=== PATIENT | male | born 1950 | race Caucasian/White ===

== ENCOUNTER 2016-09-07 15:24 | Inpatient (IN) ==
[2016-09-07 19:03] LABS: Red Cell Distribution Width 19.5 % (11.5-14.5)
[2016-09-07 19:04] LABS: Hematocrit 24.4 % (37.5-50.1); Immature Granulocytes % 1.5 % (0-4); Immature Platelets 2.5 % (1.1-6.1); Lymphocytes # 0.7 K/mcL (0.6-4.6); Lymphocytes % 28.6 %; Mean Corpuscular HGB Conc 30.7 g/dL (31.6-35.5); Mean Corpuscular Hemoglobin 34.1 pg (28.0-33.3); Mean Corpuscular Volume 110.9 fL (83.0-100.0); Mean Platelet Volume 9.3 fL (9.4-12.4); Monocytes # 0.2 K/mcL (0.0-1.3); Monocytes % 7.7 %; Neutrophils # 1.6 K/mcL (1.6-8.9); Nucleated Red Blood Cells 0.8 /100 WBC (0); Platelet Count 104 K/mcL (140-400); Segmented Neutrophils % 62.2 %
[2016-09-07 19:19] LABS: Alanine Aminotransferase 13 Units/L (0-55); Albumin 2.9 g/dL (3.5-5.0); Albumin/Globulin Ratio 1.1 (1.1-2.2); Alkaline Phosphatase 64 Units/L (38-126); Aspartate Amino Transferase 23 Units/L (5-34); BUN/Creatinine Ratio 17 (6-26); Bilirubin,Total 0.5 mg/dL (0.2-1.2); Blood Urea Nitrogen 14 mg/dL (8-26); Calcium 8.6 mg/dL (8.6-10.8); Carbon Dioxide 25 mEq/L (19-29); Chloride 107 mEq/L (98-109); Globulin 2.6 g/dL (2.4-3.5); Glucose 115 mg/dL (70-99); Osmolality,Calculated 293 (280-300); Potassium 4.3 mEq/L (3.5-4.5); Sodium 141 mEq/L (136-145); Total Protein 5.5 g/dL (6.0-8.3); eGFR For African Americans > 60 (> 60); eGFR For Non-African Americans > 60 (> 60)
[2016-09-07 19:20] LABS: Hemoglobin 7.5 g/dL (12.9-16.9)
[2016-09-07 19:33] LABS: Anisocytosis 1+ (Not Present); Macrocytosis Present (Not Present); Platelet Estimate Normal (Normal); Polychromasia 1+ (Not Present)
[2016-09-07 20:28] LABS: Bilirubin,Urine Negative (Negative); Blood,Urine Negative (Negative); Clarity,Urine Clear (Clear); Color,Urine Yellow (Yellow); Glucose,Urine (UA) Normal (Normal); Ketones,Urine Negative (Negative); Leukocyte Esterase,Urine Negative (Negative); Nitrite,Urine Negative (Negative); PH,Urine 7.5 pH Units (5.0-8.0); Protein,Urine Negative (Neg-Trace); Specific Gravity,Urine 1.016 (1.010-1.025); Urobilinogen,Urine Normal (Normal)
[2016-09-07] MEDS: 0.9 % Sodium Chloride 1,000 ML IVC ONE ×2 (21:26→23:19)
[2016-09-07] MEDS ORDERED: Piperacillin/Tazobactam 3.375 GM in D5% in Water (Mini-Bag+) 100 ML IVPB ONE (22:11)
[2016-09-07] MEDS ORDERED: Vancomycin 1,000 MG in D5% in Water 250 ML IVPB ONE (22:11)
--- NOTE | 2016-09-07 22:15 | Emergency Department Note ---
Disposition Clinical Impression: HCAP (healthcare-associated pneumonia) Pneumonia Qualifiers: Pneumonia type: due to unspecified organism Laterality: left Lung location: unspecified part of lung Qualified Code(s): J18.9 - Pneumonia, unspecified organism Disposition: Admitted As Inpatient Condition: Good Referrals: Pedro Pablo Doyle DO [Primary Care Provider] - Forms: ED Satisfaction Letter General Adult HPI - General Chief complaint: ED Fever Stated complaint: fever Time Seen by Provider: 09/07/16 16:11 Source: patient, family Limitations: no limitations Nursing Notes Reviewed: Yes Vital Signs Reviewed: Yes - History of Present Illness HPI Narrative: Patient here for evaluation of fever and cough. Patient has a history of cancer that is undergone treatment with stem cell transplant as well as experimental therapy at [facility]. Patient's currently undergoing chemotherapy with last treatment approximately 2 weeks ago. Patient had a hospital stay 2 months ago for approximately 2 weeks. Patient fever of 101 today. Patient has had a mild cough that has not been productive in nature. They called [facility] told him to go to the nearest ER for evaluation. Pain Scale: 0 - Related Data Home Medications Medication Instructions Recorded Confirmed Acetaminophen [Tylenol] 1,000 mg PO BID PRN 09/10/14 07/25/15 Ondansetron HCl [Zofran] 4 mg PO QAM PRN 12/29/14 07/25/15 Previous Rx's Medication Instructions Recorded Magic Mouthwash 10 ml PO BID PRN #300 mls 09/13/14 Acyclovir [Zovirax] 400 mg PO DAILY #30 tablet 04/04/15 Omeprazole [PriLOSEC] 20 mg PO DAILY #30 capsule. 04/04/15 Rivaroxaban [Xarelto] 10 mg PO QAM #30 tablet 04/11/15 predniSONE [PredniSONE] 10 mg PO DAILY #30 tablet 05/27/15 Lenalidomide [Revlimid] 15 mg PO DAILY #21 capsule 06/25/15 Loratadine [Claritin] 1 tab PO DAILY #30 tablet 07/25/15 Magic Mouthwash [Magic Mouthwash 10 ml PO QID PRN #240 ml 07/25/15 BLM] Tamsulosin [Flomax] 0.4 mg PO DAILY #30 cap.er.24h 04/14/16 Allergies Allergy/AdvReac Type Severity Reaction Status Date / Time levofloxacin [From Levaquin] Allergy Muscle Pain Verified 01/30/15 12:44 sulfamethoxazole Allergy Rash Verified 09/07/16 15:52 [From Bactrim] trimethoprim [From Bactrim] Allergy Rash Verified 09/07/16 15:52 All systems ED: reviewed and negative except as stated. Constitutional: Reports: fever, weakness Eyes: Denies: eye pain Cardiovascular: Reports: dyspnea on exertion Respiratory: Reports: cough, dyspnea Gastrointestinal: Denies: abdominal pain, nausea, vomiting Genitourinary: Denies: urgency, dysuria Endocrine: Reports: fatigue Past Medical History - Past Medical History Medical history: Reports: cancer, hyperlipidemia, pulmonary embolus, other Surgical history: Reports: herniorrhaphy, other (left shoulder repair, knee meniscus repair) Psychiatric history: Reports: no psych history - Social History Smoking Status: Former smoker Smokeless Tobacco Status: No Alcohol use: Reports: none Drug use: Reports: unknown Physical Exam General appearance: NAD, conversant Eyes: anicteric sclerae, moist conjunctivae; PERRL HENT: Atraumatic; oropharynx clear with moist mucous membranes and no mucosal ulcerations Neck: Normal inspection; Trachea midline; FROM, supple Lungs: CTA, with normal respiratory effort and no intercostal retractions CV: RRR, no MRGs Abdomen: Soft, non-tender; no rebound or gaurding Extremities: No peripheral edema or extremity lymphadenopathy Skin: Normal temperature; no rash, ulcers or lesions Psych: Appropriate mood and affect Neuro: alert and oriented to person, place and time - General Limitations: no limitations General appearance: alert, in no apparent distress - Head Head exam: atraumatic, normocephalic - ENT ENT exam: normal exam - Neck Neck exam: Present: normal inspection - Chest Chest inspection: Present: normal inspection, symmetric chest wall rise. Absent : tenderness - Respiratory Respiratory exam: Absent: respiratory distress, wheezes - Cardiovascular Cardiovascular exam: Present: regular rate, normal rhythm - Abdominal Exam Abdominal exam: Present: soft, Non-Tender - Extremities Exam Extremities exam: Present: normal inspection. Absent: tenderness - Back Exam Back exam: Present: normal inspection. Absent: tenderness - Neurological Exam Neurological exam: Present: alert, oriented X3 - Psychiatric Psychiatric exam: Present: normal affect, normal mood - Skin Skin exam: Present: warm, dry, intact Course - Consultations Consultation #1: Hospitalist, Dr. West accepts Vital Signs Temperature 99.2 F 09/07/16 15:53 Pulse Rate 100 09/07/16 15:53 Respiratory Rate 16 09/07/16 15:53 Blood Pressure 106/71 09/07/16 15:53 O2 Sat by Pulse Oximetry 92 09/07/16 15:53 Temperature 99.4 F 09/07/16 16:58 Pulse Rate 78 09/07/16 16:58 Respiratory Rate 16 09/07/16 16:58 Blood Pressure 118/80 09/07/16 16:58 O2 Sat by Pulse Oximetry 95 09/07/16 16:58 Oxygen Delivery Oxygen Delivery Nasal Cannula Medical Decision Making - Lab Data Result diagrams: 09/07/16 18:45 09/07/16 18:45 Lab Results 09/07/16 09/07/16 09/07/16 Range/Units 18:45 18:45 19:46 WBC 2.6 L (4.3-11.1) K/mcL RBC 2.20 L (4.19-5.50) M/mcL Hgb 7.5 L (12.9-16.9) g/dL Hct 24.4 L (37.5-50.1) % MCV 110.9 H (83.0-100.0) fL MCH 34.1 H (28.0-33.3) pg MCHC 30.7 L (31.6-35.5) g/dL RDW 19.5 H (11.5-14.5) % Plt Count 104 L (140-400) K/mcL MPV 9.3 L (9.4-12.4) fL Immature Gran % 1.5 (0-4) % Seg Neutrophils % 62.2 % Lymphocytes % 28.6 % Monocytes % 7.7 % Eosinophils % 0.0 % Basophils % 0.0 % Neutrophils # 1.6 (1.6-8.9) K/mcL Lymphocytes # 0.7 (0.6-4.6) K/mcL Monocytes # 0.2 (0.0-1.3) K/mcL Eosinophils # 0.0 (0.0-0.6) K/mcL Basophils # 0.0 (0.0-0.2) K/mcL Nucleated RBCs/100 WBC 0.8 H (0) /100 WBC Platelet Estimate Normal (Normal) Immature Plt Fraction 2.5 (1.1-6.1) % Polychromasia 1+ A (Not Present) Anisocytosis 1+ A (Not Present) Macrocytosis Present A (Not Present) Sodium 141 (136-145) mEq/L Potassium 4.3 (3.5-4.5) mEq/L Chloride 107 (98-109) mEq/L Carbon Dioxide 25 (19-29) mEq/L BUN 14 (8-26) mg/dL Creatinine 0.82 (0.72-1.25) mg/dL Est GFR ( Amer) > 60 (> 60) Est GFR (Non-Af Amer) > 60 (> 60) BUN/Creatinine Ratio 17 (6-26) Glucose 115 H (70-99) mg/dL Calculated Osmolality 293 (280-300) Calcium 8.6 (8.6-10.8) mg/dL Total Bilirubin 0.5 (0.2-1.2) mg/dL AST 23 (5-34) Units/L ALT 13 (0-55) Units/L Alkaline Phosphatase 64 (38-126) Units/L Serum Total Protein 5.5 L (6.0-8.3) g/dL Albumin 2.9 L (3.5-5.0) g/dL Globulin 2.6 (2.4-3.5) g/dL Albumin/Globulin Ratio 1.1 (1.1-2.2) Urine Color Yellow (Yellow) Urine Clarity Clear (Clear) Urine pH 7.5 (5.0-8.0) pH Units Ur Specific [place] 1.016 (1.010-1.025) Urine Protein Negative (Neg-Trace) mg/dL Urine Glucose (UA) Normal (Normal) mg/dL Urine Ketones Negative (Negative) mg/dL Urine Blood Negative (Negative) Urine Nitrite Negative (Negative) Urine Bilirubin Negative (Negative) Urine Urobilinogen Normal (Normal) mg/dL Ur Leukocyte Esterase Negative (Negative) Ur Culture Indicated? NO (NO) Attestation Statement - Attestation Attestation: I examined this patient and my medical decision-making was reviewed with the Resident Physician. I agree with the documented findings, disposition and treatment plan as described except to the extent set forth below. Cancer patient on chemotherapy, last treatment 2 weeks ago who is not currently neutropenic with presents with healthcare associated pneumonia and a room air pulse ox of 92%. Triple antibiotic therapy ordered, blood culture sent, patient admitted.
[2016-09-07] MEDS ORDERED: Levofloxacin 750 MG/150 ML 750 MG/150 ML BAG IVPB SCH (23:00)
[2016-09-07] MEDS ORDERED: Naloxone 0.4 MG/ML INJ IVP PRN ×2 (23:38→23:39)
[2016-09-07] MEDS ORDERED: Ipratropium/Albuterol Neb 3 ML IH PRN (23:40)
[2016-09-07] MEDS ORDERED: 0.9 % Sodium Chloride 1,000 ML IVC SCH (23:45)
--- NOTE | 2016-09-07 23:45 | Internal Med History&Physical ---
Date of Encounter: 09/07/16 Time of Encounter: 23:43 Assessment and Plan (1) HCAP (healthcare-associated pneumonia) Current visit: Yes Status: Acute continue HCAP therapy started in the ED with IV vanco, monitor level, IV cefepime, IV levaquin. Blood cx pending , Duoneb QID, prn (2) Pulmonary embolism Current visit: No Status: Acute continue xarelto Qualifiers: Qualified Code(s): I26.99 - Other pulmonary embolism without acute cor pulmonale (3) Immunosuppressed due to chemotherapy Current visit: No Status: Acute on antibiotics. On ppx medications. Follow up with oncology at [facility] (4) DLBCL (diffuse large B cell lymphoma) Current visit: No Status: Chronic on BR therapy. Hold for now. Follow up with onc outpatient at [facility] when discharge Internal Medicine - H&P: HPI Chief complaint: Fever, cough History of present illness: Mr. Velasco is a 66 year old male with hx of DLBCL on multiple therapy including RCHOP, ASCT, CART19, now in [place] who presents with 2 days hx of cough associated with fever 101 while at home. He uses 2 L NC in the evening at baseline. Cough intermittent productive. No improving or relieving factors. Last BR 2 weeks ago. CXR in the ED found LLL PNA. Blood cx pending. Past Med Surg Social Fam HX - Past Medical History Medical history: cancer, hyperlipidemia, pulmonary embolus, other Psychiatric history: no psych history - Past Surgical History Surgical History: herniorrhaphy, other (left shoulder repair, knee meniscus repair) - Social History Smoking Status: Former smoker Smokeless Tobacco Status: No Alcohol use: none Drug use: unknown - Family History Father Family Member Ethnicity: Non- Living Status: Hx Family Cardiac Disorders: No Hx Family Respiratory Disorders: No Hx Family Cancer: Yes (throat CA and bladder CA) Hx Family GI Disorders: No Hx Family Endocrine Disorder: No Hx Family Neuromuscular Disorders: No Hx Family Neurologic Disorders: No Hx Family HEENT Disorders: No Hx Family Autoimmune Disorders: No Mother Hx Family Cardiac Disorders: Yes (HTN and blood clot) Internal Medicine - H&P: Meds Acetaminophen [Tylenol] 1,000 mg PO Q6H PRN 09/10/14 [History] Magic Mouthwash [Magic Mouthwash BLM] 10 ml PO QID PRN #240 ml 07/25/15 [Rx] Acyclovir [Zovirax] 800 mg PO BID 09/07/16 [History] Calcium Carbonate [Calcium] 500 mg PO BID 09/07/16 [History] Dapsone [Dapsone] 100 mg PO DAILY 09/07/16 [History] Docusate [Colace] 100 mg PO QPM 09/07/16 [History] Docusate [Colace] 200 mg PO QAM 09/07/16 [History] Escitalopram [Lexapro] 10 mg PO DAILY 09/07/16 [History] Magnesium Oxide [Mag-Ox] 400 mg PO BID 09/07/16 [History] Multivitamin [Multi-Day Vitamins] 1 each PO DAILY 09/07/16 [History] Omeprazole [PriLOSEC] 40 mg PO DAILY 09/07/16 [History] Oxycodone HCl 15 mg PO Q6H PRN 09/07/16 [History] Prochlorperazine Maleate [Compazine] 10 mg PO Q6H PRN 09/07/16 [History] Ranitidine HCl [Acid Geodetic Engineer] 150 mg PO DAILY 09/07/16 [History] Rivaroxaban [Xarelto] 20 mg PO DAILY 09/07/16 [History] Tamsulosin [Flomax] 0.4 mg PO Q48H 09/07/16 [History] predniSONE [PredniSONE] 20 mg PO DAILY 09/07/16 [History] Allergies levofloxacin [From Levaquin] Allergy (Verified 01/30/15 12:44) Muscle Pain sulfamethoxazole [From Bactrim] Allergy (Verified 09/07/16 15:52) Rash trimethoprim [From Bactrim] Allergy (Verified 09/07/16 15:52) Rash All Systems PM: A 10-system review of systems was performed and is negative for pertinent findings except as documented above in the HPI. Review of systems: ROS 14 point review of systems reviewed as best as possible given presentation. Pertinent positive or negative as per HPI or otherwise reviewed as negative - Constitutional Vitals: Temp Pulse Resp BP Pulse Ox 99.4 F 78 16 103/81 95 09/07/16 16:58 09/07/16 16:58 09/07/16 23:31 09/07/16 23:31 09/07/16 16:58 Exam: General - AAO x 3 Psych - Appropriate affect/speech. No agitation Eyes - ARNEL. Eye lids intact. No scleral icterus ENT - Oral mucosa pink, dentition intact. External ear clear/dry/intact. No thyromegaly Lymphatics - No cervical/inguinal lympadenopathy Neuro - No gross peripheral or central neuro deficits with intact CN 2-12 exam Heart - Sinus. RRR. S1 and S2 present. No added HS/murmurs appreciated. No elevated JVD appreciated. No calf swellings/erythema Lung - Adequate air entry b/l, left lower lobe crackles. No wheezes appreciated GI - Soft, non-tender. No hepatosplenomegaly/ascities. BS+ - No CVA/suprapubic tenderness or palpable bladder distension Skin - Intact. No rash/petechiae/ecchymosis. Warm extremities MSK - Joints with normal ROM. No joint swellings Internal Med - H&P Results - Labs CBC & Chem 7: 09/07/16 18:45 09/07/16 18:45 - VTE Reasons for not Prescribing Prophylaxis: Not indicated-Anticoagulated or INR therapeutic
[2016-09-08] MEDS: *HR* Rivaroxaban 10 MG TABLET PO SCH ×2 (00:57→20:30)
[2016-09-08] MEDS: Cefepime HCl 2,000 MG in D5% in Water (Mini-Bag+) 100 ML IVPB SCH ×3 (02:33→18:35)
[2016-09-08] MEDS: Ipratropium/Albuterol Neb 3 ML IH SCH ×4 (04:20→22:18)
[2016-09-08 06:06] LABS: Red Blood Count 2.15 M/mcL (4.19-5.50); Red Cell Distribution Width 19.4 % (11.5-14.5)
[2016-09-08 06:08] LABS: Hematocrit 24.1 % (37.5-50.1); Hemoglobin 7.3 g/dL (12.9-16.9); Immature Platelets 3.9 % (1.1-6.1); Mean Corpuscular HGB Conc 30.3 g/dL (31.6-35.5); Mean Corpuscular Volume 112.1 fL (83.0-100.0); Mean Platelet Volume 10.1 fL (9.4-12.4)
[2016-09-08 06:29] LABS: Alanine Aminotransferase 14 Units/L (0-55); Albumin 2.8 g/dL (3.5-5.0); Albumin/Globulin Ratio 1.1 (1.1-2.2); Alkaline Phosphatase 59 Units/L (38-126); Aspartate Amino Transferase 25 Units/L (5-34); BUN/Creatinine Ratio 15 (6-26); Bilirubin,Total 0.5 mg/dL (0.2-1.2); Blood Urea Nitrogen 12 mg/dL (8-26); Calcium 8.6 mg/dL (8.6-10.8); Carbon Dioxide 25 mEq/L (19-29); Chloride 108 mEq/L (98-109); Globulin 2.6 g/dL (2.4-3.5); Glucose 84 mg/dL (70-99); Magnesium 1.6 mg/dL (1.6-2.6); Osmolality,Calculated 291 (280-300); Potassium 3.7 mEq/L (3.5-4.5); Sodium 141 mEq/L (136-145); Total Protein 5.4 g/dL (6.0-8.3); eGFR For African Americans > 60 (> 60); eGFR For Non-African Americans > 60 (> 60)
[2016-09-08] MEDS ORDERED: *HR* Rivaroxaban 10 MG TABLET PO SCH (09:00)
[2016-09-08] MEDS ORDERED: predniSONE 20 MG TABLET PO SCH (09:00)
[2016-09-08] MEDS: Magnesium Oxide 400 MG TABLET PO SCH ×2 (10:06→20:30)
--- NOTE | 2016-09-08 10:10 | Internal Med Progress Note ---
<MiladRene villalba - Last Filed: 09/08/16 10:05> Date of Encounter: 09/08/16 Time of Encounter: 10:06 - Assessment and plan (1) HCAP (healthcare-associated pneumonia) Current Visit: Yes Status: Acute Assessment and plan: Patient presented with fever and mild cough. Chest x-ray showed very mild opacification in the left lower lobe which was read as pneumonia versus atelectasis. There does not appear to be a clear lobar pneumonia. Patient is on broad-spectrum antibiotics with vank, cefepime, Levaquin given his immunocompromised state. Patient has been afebrile since presentation and has not had a cough. White count is stable, patient is not neutropenic. Blood cultures are pending. Continue antibiotic therapy with plans to de-escalate once blood cultures are returned. (2) Pulmonary embolism Current Visit: No Status: Acute Assessment and plan: Patient was diagnosed 5 weeks ago. Is on Xarelto and has an IVC filter in place. No evidence of new PE. Continue anticoagulation with Xarelto. Qualifiers: Pulmonary embolism type: other Chronicity: unspecified Acute cor pulmonale presence: without acute cor pulmonale Qualified Code(s): I26.99 - Other pulmonary embolism without acute cor pulmonale (3) Immunosuppressed due to chemotherapy Current Visit: No Status: Acute Assessment and plan: Currently on prophylactic treatment for pneumocystis and viral syndromes with dapsone and acyclovir. Continue these. (4) DLBCL (diffuse large B cell lymphoma) Current Visit: No Status: Chronic Assessment and plan: Currently undergoing treatment at the [facility].Recent treatment was approximately 2 weeks ago, and next treatment is 2 weeks from now. (5) DVT prophylaxis Current Visit: No Status: Acute Assessment and plan: Patient is currently fully anticoagulated with Xarelto - Subjective Interval history: Patient seen and examined at bedside. Patient states he feels pretty good today. He states he feels slightly weak but otherwise has no complaints. He denies fever, chills, cough, dyspnea, chest pain. - Constitutional Vitals: Temp Pulse Resp BP Pulse Ox 99 F 81 16 111/66 96 09/08/16 07:20 09/08/16 07:20 09/08/16 07:20 09/08/16 07:20 09/08/16 07:20 General appearance: Present: A&O X 3, no acute distress - Respiratory Respiratory exam: Present: CTAB. Absent: rales, rhonchi, wheezes - Cardiovascular Cardiovascular exam: Present: RRR. Absent: gallop, rubs, systolic murmur - GI/Abdominal GI/Abdominal exam: Present: normal bowel sounds, soft. Absent: distended, tenderness - Neurological Exam Neurological exam: Present: alert, CN II-XII intact, oriented X3, no focal deficits Internal Medicine: Result - Labs CBC & Chem 7: 09/08/16 05:07 09/08/16 05:07 Labs: Short CBC 09/08/16 Range/Units 05:07 WBC 2.7 L (4.3-11.1) K/mcL Hgb 7.3 L (12.9-16.9) g/dL Hct 24.1 L (37.5-50.1) % Plt Count 97 L (140-400) K/mcL BMP 09/08/16 05:07 Sodium 141 Potassium 3.7 Chloride 108 Carbon Dioxide 25 BUN 12 Creatinine 0.78 Glucose 84 Calcium 8.6 Liver Function 09/08/16 Range/Units 05:07 Total Bilirubin 0.5 (0.2-1.2) mg/dL AST 25 (5-34) Units/L ALT 14 (0-55) Units/L Alkaline Phosphatase 59 (38-126) Units/L Albumin 2.8 L (3.5-5.0) g/dL - VTE Reasons for not Prescribing Prophylaxis: Not indicated-Anticoagulated or INR therapeutic Consult Discharge Plan - Plan Referrals: Pedro Pablo Doyle DO [Primary Care Provider] - <Clarence Bryan - Last Filed: 09/08/16 22:50> Date of Encounter: 09/08/16 - Constitutional Vitals: Temp Pulse Resp BP Pulse Ox 98.5 F 79 16 115/73 90 09/08/16 19:53 09/08/16 19:53 09/08/16 19:53 09/08/16 19:53 09/08/16 19:53 Internal Medicine: Result - Labs CBC & Chem 7: 09/08/16 05:07 09/08/16 05:07 Labs: Short CBC 09/08/16 Range/Units 05:07 WBC 2.7 L (4.3-11.1) K/mcL Hgb 7.3 L (12.9-16.9) g/dL Hct 24.1 L (37.5-50.1) % Plt Count 97 L (140-400) K/mcL BMP 09/08/16 05:07 Sodium 141 Potassium 3.7 Chloride 108 Carbon Dioxide 25 BUN 12 Creatinine 0.78 Glucose 84 Calcium 8.6 Liver Function 09/08/16 Range/Units 05:07 Total Bilirubin 0.5 (0.2-1.2) mg/dL AST 25 (5-34) Units/L ALT 14 (0-55) Units/L Alkaline Phosphatase 59 (38-126) Units/L Albumin 2.8 L (3.5-5.0) g/dL - Attending Attestation Less likely to think this is Pneumonia.. lungs are clear. Other causes of Temp. to be considered..PE, Tumor, Meds, ect. Will most likely DC when cultures become negative. This is Dr. Pato Bryan
[2016-09-08] MEDS ORDERED: Acetaminophen 325 MG TABLET PO PRN (10:21)
[2016-09-08] MEDS: Vancomycin 1,250 MG in D5% in Water 250 ML IVPB SCH (12:26)
[2016-09-08] MEDS: *HR* OxyCODONE Immed Rel 15 MG TABLET PO PRN ×2 (13:27→20:30)
[2016-09-08] MEDS: Hydrocortisone Sodium Succ 100 MG/2 ML VIAL IVP SCH (17:32)
[2016-09-08] MEDS ORDERED: Vancomycin 1,000 MG in D5% in Water 250 ML IVPB SCH (20:00)
[2016-09-09] MEDS: Vancomycin 1,250 MG in D5% in Water 250 ML IVPB SCH ×2 (00:09→11:08)
[2016-09-09] MEDS: Hydrocortisone Sodium Succ 100 MG/2 ML VIAL IVP SCH ×3 (00:09→11:09)
[2016-09-09] MEDS ORDERED: Levofloxacin 750 MG/150 ML 750 MG/150 ML BAG IVPB SCH (01:00)
[2016-09-09] MEDS: Cefepime HCl 2,000 MG in D5% in Water (Mini-Bag+) 100 ML IVPB SCH ×2 (04:04→11:09)
[2016-09-09] MEDS: Ipratropium/Albuterol Neb 3 ML IH SCH ×2 (04:09→10:58)
[2016-09-09] MEDS: Magnesium Oxide 400 MG TABLET PO SCH (08:11)
[2016-09-09] MEDS: *HR* OxyCODONE Immed Rel 15 MG TABLET PO PRN (08:11)
[2016-09-09 10:11] LABS: BUN/Creatinine Ratio 13 (6-26); Blood Urea Nitrogen 11 mg/dL (8-26); Calcium 9.2 mg/dL (8.6-10.8); Carbon Dioxide 23 mEq/L (19-29); Chloride 105 mEq/L (98-109); Glucose 99 mg/dL (70-99); Osmolality,Calculated 287 (280-300); Potassium 4.2 mEq/L (3.5-4.5); Sodium 139 mEq/L (136-145); eGFR For African Americans > 60 (> 60); eGFR For Non-African Americans > 60 (> 60)
--- NOTE | 2016-09-09 10:19 | Discharge Summary ---
<Rene Goff - Last Filed: 09/09/16 15:18> Date of Encounter: 09/09/16 Time of Encounter: 10:17 - Discharge Diagnosis (1) HCAP (healthcare-associated pneumonia) Priority: Primary Status: Acute (2) Pulmonary embolism Priority: Secondary Status: Chronic Qualifiers: Pulmonary embolism type: other Chronicity: unspecified Acute cor pulmonale presence: without acute cor pulmonale Qualified Code(s): I26.99 - Other pulmonary embolism without acute cor pulmonale (3) Immunosuppressed due to chemotherapy Priority: Secondary Status: Chronic (4) DLBCL (diffuse large B cell lymphoma) Priority: Secondary Status: Chronic - Discharge Medications Prescriptions: Magic Mouthwash [Magic Mouthwash BLM] 10 ml PO QID PRN #240 ml PRN Reason: Mouth Irritation Home Medications: Acetaminophen [Tylenol] 1,000 mg PO Q6H PRN 09/10/14 [History] Acyclovir [Zovirax] 800 mg PO BID 09/07/16 [History] Calcium Carbonate [Calcium] 500 mg PO BID 09/07/16 [History] Dapsone 100 mg PO DAILY 09/07/16 [History] Docusate [Colace] 100 mg PO QPM 09/07/16 [History] Docusate [Colace] 200 mg PO QAM 09/07/16 [History] Escitalopram [Lexapro] 10 mg PO DAILY 09/07/16 [History] Magnesium Oxide [Mag-Ox] 400 mg PO BID 09/07/16 [History] Multivitamin [Multi-Day Vitamins] 1 each PO DAILY 09/07/16 [History] Omeprazole [PriLOSEC] 40 mg PO DAILY 09/07/16 [History] Oxycodone HCl 15 mg PO Q6H PRN 09/07/16 [History] Prochlorperazine Maleate [Compazine] 10 mg PO Q6H PRN 09/07/16 [History] Ranitidine HCl [Acid Power Equipment Mechanics Instructor] 150 mg PO DAILY 09/07/16 [History] Rivaroxaban [Xarelto] 20 mg PO DAILY 09/07/16 [History] Tamsulosin [Flomax] 0.4 mg PO Q48H 09/07/16 [History] predniSONE [PredniSONE] 20 mg PO DAILY 09/07/16 [History] Magic Mouthwash [Magic Mouthwash BLM] 10 ml PO QID PRN #240 ml 09/09/16 [Rx] Allergies/Adverse Reactions: Allergies levofloxacin [From Levaquin] Allergy (Verified 01/30/15 12:44) Muscle Pain sulfamethoxazole [From Bactrim] Allergy (Verified 09/07/16 15:52) Rash trimethoprim [From Bactrim] Allergy (Verified 09/07/16 15:52) Rash Date of admission: 09/07/16 23:38 Primary care physician: Pedro Pablo Doyle, Discharging clinician: Rene Goff Anticipated date of discharge: 09/09/16 - Patient Status Disposition: Home, Self-Care Condition: Good Functional capacity at discharge: independent ambulation Overall status at discharge: patient is progressing back to baseline - Discharge Instructions Instructions: Pneumonia (DC) Follow Up With: Pedro Pablo Doyle DO [Primary Care Provider] - 09/16/16 9:30 am (Please follow up as schedule) Additional Instructions: Please follow up with your PCP within 1 week. Please follow up with your oncologists at [facility]. Please resume your home medications. Please return for any new or worsening symptoms. - Diet and Activity Activity: increase activity as tolerated Diet: advance to your usual diet Interval History: Patient seen and examined at bedside. Patient states that he feels good today, he feels like he is back to his normal self. He denies any fevers overnight. He denies cough, congestion, shortness of breath. Hospital course: Mr. Velasco is a 66 year old male with history of diffuse large B cell lymphoma who presented with fever. Patient is currently undergoing experimental cancer treatment at [facility] and patient states that prior to arrival he had a temperature of 101 at home and was told by his oncologists that if he were to get a fever he would need to be seen at a local hospital. In the emergency department patient complained of mild shortness of breath and cough. These symptoms resolved quickly. Patient was placed on broad spectrum abx and blood cultures were drawn. Patient has been a febrile since admission and cultures have been negative. Patient will be discharged home in stable condition. - Time Spent with Patient Total time spent providing and/or coordinating discharge services: - Constitutional Vitals: Temp Pulse Resp BP Pulse Ox 98.5 F 80 14 140/87 93 09/09/16 06:36 09/09/16 06:36 09/09/16 06:36 09/09/16 06:36 09/09/16 08:18 General appearance: Present: A&O X 3, no acute distress - Respiratory Respiratory exam: Present: CTAB. Absent: rales, rhonchi, wheezes - Cardiovascular Cardiovascular exam: Present: RRR. Absent: gallop, rubs, systolic murmur - GI/Abdominal GI/Abdominal exam: Present: normal bowel sounds, soft. Absent: distended, tenderness - Neurological Exam Neurological exam: Present: alert, CN II-XII intact, oriented X3 - VTE Reasons for not Prescribing Prophylaxis: Not indicated-Anticoagulated or INR therapeutic <Clarence Bryan - Last Filed: 09/09/16 18:15> Date of Encounter: 09/09/16 Date of admission: 09/07/16 23:38 Primary care physician: Pedro Pablo Doyle, Hospital course: Mr. Vleasco is a 66 year old male - Time Spent with Patient Total time spent providing and/or coordinating discharge services: - Constitutional Vitals: Temp Pulse Resp BP Pulse Ox 98.2 F 90 14 148/85 93 09/09/16 10:00 09/09/16 10:00 09/09/16 10:00 09/09/16 10:00 09/09/16 10:00 - Attending Attestation I examined this patient and my medical decision-making was reviewed with the Resident Physician. I agree with the documented findings, disposition and treatment plan as described except to the extent set forth below. He cont. to do great..no further temps. Not impressed that this was infective.. suspect due to meds or Lymphoma.
[2016-09-09 10:44] LABS: Basophils % 0.4 %; Hematocrit 26.3 % (37.5-50.1); Immature Granulocytes % 4.5 % (0-4); Lymphocytes # 0.6 K/mcL (0.6-4.6); Lymphocytes % 20.8 %; Mean Corpuscular HGB Conc 30.4 g/dL (31.6-35.5); Mean Corpuscular Hemoglobin 33.6 pg (28.0-33.3); Mean Corpuscular Volume 110.5 fL (83.0-100.0); Mean Platelet Volume 10.8 fL (9.4-12.4); Monocytes # 0.4 K/mcL (0.0-1.3); Monocytes % 13.6 %; Neutrophils # 1.6 K/mcL (1.6-8.9); Nucleated Red Blood Cells 0.8 /100 WBC (0); Platelet Count 114 K/mcL (140-400); Red Blood Count 2.38 M/mcL (4.19-5.50); Red Cell Distribution Width 18.7 % (11.5-14.5); Segmented Neutrophils % 60.7 %
[2016-09-09 12:04] VITALS: BP 148/85
[2016-09-09 12:05] LABS: Macrocytosis Present (Not Present); Polychromasia 1+ (Not Present)
[2016-09-09] MEDS ORDERED: Aminoglycoside Consult 1 EACH MC ONE (15:10)
== END 2016-09-09 15:11 | disposition home or self-care (01) | DRG 193 ==
LOC: EMEROO 15:24 → 2ANU 15:24
PROVIDERS: ADMIT Internal Medicine Hematology & Oncology; ATTEND Internal Medicine

== ENCOUNTER 2016-12-05 16:11 | Inpatient (IN) ==
[2016-12-05] MEDS ORDERED: 0.9 % Sodium Chloride 1,000 ML IVC ONE (16:42)
--- NOTE | 2016-12-05 16:42 | Emergency Department Note ---
Disposition Clinical Impression: Sepsis Qualifiers: Sepsis type: sepsis due to unspecified organism Qualified Code(s): A41.9 - Sepsis, unspecified organism Disposition: Admitted As Inpatient Condition: Fair Time of Disposition: 19:17 General Adult HPI - General Chief complaint: ED Fever Stated complaint: fever, cancer patient Time Seen by Provider: 12/05/16 16:25 Source: patient, family Limitations: no limitations Nursing Notes Reviewed: Yes Vital Signs Reviewed: Yes - History of Present Illness HPI Narrative: Patient is a 66-year-old male who presents to [facility] ED with a chief complaint of fever at home. He has a history of diffuse large B cell lymphoma and follows up at [facility] for this. Patient states any time he has a fever, he is told to come in to get checked out. States he also had a fever last month when he was done in [place] and they ignored it for a few days. He then was septic and spent 3 days in the ICU down there. states she does not wanted to get that bad this time. Patient denies any cough or difficulty breathing. No chest pain, abdominal pain, problems with urination or bowel movements. Patient's pain from his cancer is primarily on the right side of the abdomen. States this is not any worse than usual. Patient does admit that he has been getting more weak the last few days than usual. Onset (ago): Just [employer] Radiation: non-radiation Pain Severity: moderate Pain Scale: 5 Quality: aching Improves with: nothing Worsens with: nothing Associated symptoms: Reports: fever/chills, weakness. Denies: chest pain, cough , headaches, loss of appetite, nausea/vomiting, rash, shortness of breath - Related Data Home Medications Medication Instructions Recorded Confirmed Acetaminophen [Tylenol] 1,000 mg PO Q6H PRN 09/10/14 09/07/16 Acyclovir [Zovirax] 800 mg PO BID 09/07/16 09/07/16 Calcium Carbonate [Calcium] 500 mg PO BID 09/07/16 09/07/16 Dapsone 100 mg PO DAILY 09/07/16 09/07/16 Docusate [Colace] 100 mg PO QPM 09/07/16 09/07/16 Docusate [Colace] 200 mg PO QAM 09/07/16 09/07/16 Escitalopram [Lexapro] 10 mg PO DAILY 09/07/16 09/07/16 Magnesium Oxide [Mag-Ox] 400 mg PO BID 09/07/16 09/07/16 Multivitamin [Multi-Day Vitamins] 1 each PO DAILY 09/07/16 09/07/16 Omeprazole [PriLOSEC] 40 mg PO DAILY 09/07/16 09/07/16 Oxycodone HCl 15 mg PO Q6H PRN 09/07/16 09/07/16 Prochlorperazine Maleate 10 mg PO Q6H PRN 09/07/16 09/07/16 [Compazine] Ranitidine HCl [Acid Photocomposition Keyboard Operator] 150 mg PO DAILY 09/07/16 09/07/16 Rivaroxaban [Xarelto] 20 mg PO DAILY 09/07/16 09/07/16 Tamsulosin [Flomax] 0.4 mg PO Q48H 09/07/16 09/07/16 predniSONE [PredniSONE] 20 mg PO DAILY 09/07/16 09/07/16 Previous Rx's Medication Instructions Recorded Magic Mouthwash [Magic Mouthwash 10 ml PO QID PRN #240 ml 09/09/16 BLM] Allergies Allergy/AdvReac Type Severity Reaction Status Date / Time levofloxacin [From Levaquin] Allergy Muscle Pain Verified 12/05/16 16:19 sulfamethoxazole Allergy Rash Verified 12/05/16 16:19 [From Bactrim] trimethoprim [From Bactrim] Allergy Rash Verified 12/05/16 16:19 All systems ED: reviewed and negative except as stated. Past Medical History - Past Medical History Attestation: Yes The following information was validated with the patient. Medical history: Reports: cancer, hyperlipidemia, pulmonary embolus, other Surgical history: Reports: herniorrhaphy, other (left shoulder repair, knee meniscus repair) Psychiatric history: Reports: no psych history - Social History Smoking Status: Never smoker Smokeless Tobacco Status: No Alcohol use: Reports: none Drug use: Reports: unknown Physical Exam - General Limitations: no limitations General appearance: alert, in no apparent distress - Head Head exam: atraumatic, normocephalic, normal inspection - Eye Eye exam: Present: normal appearance, PERRL, EOMI - ENT ENT exam: normal exam, normal oropharynx, mucous membranes moist - Neck Neck exam: Present: normal inspection, full ROM, trachea midline - Chest Chest inspection: Present: normal inspection, symmetric chest wall rise - Respiratory Respiratory exam: Present: normal lung sounds bilaterally - Cardiovascular Cardiovascular exam: Present: regular rate, normal rhythm, normal heart sounds - Abdominal Exam Abdominal exam: Present: soft, tenderness. Absent: distention, guarding, rebound, rigidity Abdominal tenderness: Present: RUQ, diffuse, mild - Extremities Exam Extremities exam: Present: normal inspection, full ROM. Absent: tenderness, pedal edema - Back Exam Back exam: Present: normal inspection, full ROM. Absent: tenderness - Neurological Exam Neurological exam: Present: alert, oriented X3 - Psychiatric Psychiatric exam: Present: normal affect, normal mood - Skin Skin exam: Present: warm, dry, intact, normal color Course Course Narrative: Patient seen and examined. Fever of unknown origin at this time. Sounds like patient was previously bacteremic. Septic workup initiated. We will start with 1 L IV fluid bolus and reassessed. Patient is due for his pain medication. We will go ahead and give him 15 mg of the oxycodone that he normally gets every 6 hours. We will also give a dose of 100 mg IV hydrocortisone for stress dose due to patient being on chronic steroids. - Reevaluation(s) Reevaluation #1: Labwork unremarkable. We will give a second liter of fluid bolus. We will go ahead and start on broad spectrum antibiotics and given Zosyn. I discussed results with the family members. They preferred to stay at our facility due to the proximity to their home. States he usually just get admitted for antibiotics and then wait for the blood cultures. We will admit for sepsis of unknown source. I discussed with hospitalist Edgardo Benites who has accepted patient for admission. Time: 19:16 Vital Signs Temperature 98.6 F 12/05/16 16:12 Pulse Rate 90 12/05/16 16:12 Respiratory Rate 18 12/05/16 16:12 Blood Pressure 87/61 12/05/16 16:12 O2 Sat by Pulse Oximetry 100 12/05/16 16:12 Temperature 99.4 F 12/05/16 18:09 Pulse Rate 88 12/05/16 18:00 Respiratory Rate 16 12/05/16 18:00 Blood Pressure 102/62 12/05/16 18:00 O2 Sat by Pulse Oximetry 93 12/05/16 18:00 Oxygen Delivery Oxygen Delivery Nasal Cannula Medical Decision Making - Medical Records Medical records reviewed: Yes I reviewed the patient's medical records. - Lab Data Lab results reviewed: Yes I reviewed the patient's lab results. Result diagrams: 12/05/16 16:42 12/05/16 16:42 Lab Results 12/05/16 12/05/16 12/05/16 Range/Units 16:42 16:42 16:42 WBC 6.1 (4.3-11.1) K/mcL RBC 3.17 L (4.19-5.50) M/mcL Hgb 10.6 L (12.9-16.9) g/dL Hct 32.8 L (37.5-50.1) % MCV 103.5 H (83.0-100.0) fL MCH 33.4 H (28.0-33.3) pg MCHC 32.3 (31.6-35.5) g/dL RDW 21.8 H (11.5-14.5) % Plt Count 124 L (140-400) K/mcL MPV 9.7 (9.4-12.4) fL Immature Gran % 2.0 (0-4) % Seg Neutrophils % 77.6 % Lymphocytes % 11.0 % Monocytes % 9.2 % Eosinophils % 0.0 % Basophils % 0.2 % Neutrophils # 4.7 (1.6-8.9) K/mcL Lymphocytes # 0.7 (0.6-4.6) K/mcL Monocytes # 0.6 (0.0-1.3) K/mcL Eosinophils # 0.0 (0.0-0.6) K/mcL Basophils # 0.0 (0.0-0.2) K/mcL PT 12.2 H (9.4-12.1) Seconds INR 1.1 APTT 27.0 (26.0-36.0) Seconds Sodium 138 (136-145) mEq/L Potassium 4.5 (3.5-4.5) mEq/L Chloride 102 (98-109) mEq/L Carbon Dioxide 27 (19-29) mEq/L BUN 15 (8-26) mg/dL Creatinine 1.03 (0.72-1.25) mg/dL Est GFR ( Amer) > 60 (> 60) Est GFR (Non-Af Amer) > 60 (> 60) BUN/Creatinine Ratio 15 (6-26) Glucose 121 H (70-99) mg/dL Calculated Osmolality 288 (280-300) Lactic Acid (0.5-2.2) mmol/L Calcium 9.7 (8.6-10.8) mg/dL Phosphorus 2.9 (2.3-4.7) mg/dL Magnesium 2.0 (1.6-2.6) mg/dL Total Bilirubin 0.8 (0.2-1.2) mg/dL Direct Bilirubin 0.3 (0.0-0.5) mg/dL Indirect Bilirubin 0.5 (0.0-1.2) mg/dL AST 24 (5-34) Units/L ALT 16 (0-55) Units/L Alkaline Phosphatase 73 (38-126) Units/L Troponin I (0-0.03) ng/mL Serum Total Protein 6.2 (6.0-8.3) g/dL Albumin 3.6 (3.5-5.0) g/dL Globulin 2.6 (2.4-3.5) g/dL Albumin/Globulin Ratio 1.4 (1.1-2.2) Urine Color (Yellow) Urine Clarity (Clear) Urine pH (5.0-8.0) pH Units Ur Specific Byram (1.010-1.025) Urine Protein (Neg-Trace) mg/dL Urine Glucose (UA) (Normal) mg/dL Urine Ketones (Negative) mg/dL Urine Blood (Negative) Urine Nitrite (Negative) Urine Bilirubin (Negative) Urine Urobilinogen (Normal) mg/dL Ur Leukocyte Esterase (Negative) Ur Culture Indicated? (NO) 12/05/16 12/05/16 12/05/16 Range/Units 16:42 18:03 18:42 WBC (4.3-11.1) K/mcL RBC (4.19-5.50) M/mcL Hgb (12.9-16.9) g/dL Hct (37.5-50.1) % MCV (83.0-100.0) fL MCH (28.0-33.3) pg MCHC (31.6-35.5) g/dL RDW (11.5-14.5) % Plt Count (140-400) K/mcL MPV (9.4-12.4) fL Immature Gran % (0-4) % Seg Neutrophils % % Lymphocytes % % Monocytes % % Eosinophils % % Basophils % % Neutrophils # (1.6-8.9) K/mcL Lymphocytes # (0.6-4.6) K/mcL Monocytes # (0.0-1.3) K/mcL Eosinophils # (0.0-0.6) K/mcL Basophils # (0.0-0.2) K/mcL PT (9.4-12.1) Seconds INR APTT (26.0-36.0) Seconds Sodium (136-145) mEq/L Potassium (3.5-4.5) mEq/L Chloride (98-109) mEq/L Carbon Dioxide (19-29) mEq/L BUN (8-26) mg/dL Creatinine (0.72-1.25) mg/dL Est GFR ( Amer) (> 60) Est GFR (Non-Af Amer) (> 60) BUN/Creatinine Ratio (6-26) Glucose (70-99) mg/dL Calculated Osmolality (280-300) Lactic Acid 1.8 (0.5-2.2) mmol/L Calcium (8.6-10.8) mg/dL Phosphorus (2.3-4.7) mg/dL Magnesium (1.6-2.6) mg/dL Total Bilirubin (0.2-1.2) mg/dL Direct Bilirubin (0.0-0.5) mg/dL Indirect Bilirubin (0.0-1.2) mg/dL AST (5-34) Units/L ALT (0-55) Units/L Alkaline Phosphatase (38-126) Units/L Troponin I 0.01 (0-0.03) ng/mL Serum Total Protein (6.0-8.3) g/dL Albumin (3.5-5.0) g/dL Globulin (2.4-3.5) g/dL Albumin/Globulin Ratio (1.1-2.2) Urine Color Yellow (Yellow) Urine Clarity Clear (Clear) Urine pH 7.5 (5.0-8.0) pH Units Ur Specific Byram 1.012 (1.010-1.025) Urine Protein Negative (Neg-Trace) mg/dL Urine Glucose (UA) Normal (Normal) mg/dL Urine Ketones Negative (Negative) mg/dL Urine Blood Negative (Negative) Urine Nitrite Negative (Negative) Urine Bilirubin Negative (Negative) Urine Urobilinogen Normal (Normal) mg/dL Ur Leukocyte Esterase Negative (Negative) Ur Culture Indicated? NO (NO) - Radiology Data Radiology results reviewed: Yes I reviewed the patient's radiology results. Chest X-Ray 12/05/16 16:43 IMPRESSION: Clear lungs. D/ / Brayan Rosales MD / Brayan Rosales MD Interpreting Provider: Brayan Rosales MD - EKG Data EKG #1 EKG attestation: Yes I reviewed and interpreted this EKG. EKG results narrative: EKG done at 1653 shows normal sinus rhythm with a rate of 97 beats per minute. No acute ST elevation or depression. There is prominent Q waves in leads 3 and aVF. This is unchanged from prior EKG done 12/29/2014. Critical Care Time Critical Care Time: Yes Total Critical Care Time: 35 Attestation: Critical care time 35 minutes managing possible sepsis. Attestation Statement - Attestation Attestation: Patient was seen with resident physician. I reviewed the history, physical, assessment and plan, and agree with the findings. I also personally evaluated this patient and had [id number] time with this patient. 66-year-old male blood-borne type cancer treated at [facility] presents with fever. Patient has history of sepsis which presents as a fever. Patient spiked a fever today came into the ER for evaluation and treatment. No specific symptoms per my history and physical. Denies other complaints. He came in because he wants to make sure he does not get septic. On exam vital signs stable ENT is unremarkable. Heart and lungs are normal. Abdomen soft and nontender. Extremities unremarkable. Neurologically intact. ED course we will do full septic workup will contact his cancer specialists. Workup for sepsis did not reveal source. Broad-spectrum antibiotics were started. Blood pressure was stable. Critical care time 35 minutes. We will admit for IV antibiotic therapy. Hospitalist was notified. Agree with the resident physician assessment and plan.
[2016-12-05] MEDS ORDERED: Hydrocortisone Sodium Succ 100 MG/2 ML VIAL IVP ONE (16:47)
[2016-12-05 16:53] LABS: Basophils % 0.2 %; Hematocrit 32.8 % (37.5-50.1); Hemoglobin 10.6 g/dL (12.9-16.9); Lymphocytes # 0.7 K/mcL (0.6-4.6); Mean Corpuscular HGB Conc 32.3 g/dL (31.6-35.5); Mean Corpuscular Hemoglobin 33.4 pg (28.0-33.3); Mean Corpuscular Volume 103.5 fL (83.0-100.0); Mean Platelet Volume 9.7 fL (9.4-12.4); Monocytes # 0.6 K/mcL (0.0-1.3); Monocytes % 9.2 %; Neutrophils # 4.7 K/mcL (1.6-8.9); Platelet Count 124 K/mcL (140-400); Red Blood Count 3.17 M/mcL (4.19-5.50); Red Cell Distribution Width 21.8 % (11.5-14.5); Segmented Neutrophils % 77.6 %
[2016-12-05 16:57] LABS: INR 1.1; Prothrombin Time 12.2 Seconds (9.4-12.1)
[2016-12-05 17:07] LABS: BUN/Creatinine Ratio 15 (6-26); Blood Urea Nitrogen 15 mg/dL (8-26); Calcium 9.7 mg/dL (8.6-10.8); Carbon Dioxide 27 mEq/L (19-29); Chloride 102 mEq/L (98-109); Glucose 121 mg/dL (70-99); Osmolality,Calculated 288 (280-300); Potassium 4.5 mEq/L (3.5-4.5); Sodium 138 mEq/L (136-145); eGFR For African Americans > 60 (> 60); eGFR For Non-African Americans > 60 (> 60)
[2016-12-05] MEDS ORDERED: *HR* OxyCODONE Immed Rel 5 MG TABLET PO ONE (17:07)
[2016-12-05 17:08] LABS: Alanine Aminotransferase 16 Units/L (0-55); Albumin 3.6 g/dL (3.5-5.0); Albumin/Globulin Ratio 1.4 (1.1-2.2); Alkaline Phosphatase 73 Units/L (38-126); Aspartate Amino Transferase 24 Units/L (5-34); Bilirubin,Direct 0.3 mg/dL (0.0-0.5); Bilirubin,Indirect 0.5 mg/dL (0.0-1.2); Bilirubin,Total 0.8 mg/dL (0.2-1.2); Globulin 2.6 g/dL (2.4-3.5); Phosphorous 2.9 mg/dL (2.3-4.7); Total Protein 6.2 g/dL (6.0-8.3)
[2016-12-05 18:10] LABS: Bilirubin,Urine Negative (Negative); Blood,Urine Negative (Negative); Clarity,Urine Clear (Clear); Color,Urine Yellow (Yellow); Glucose,Urine (UA) Normal (Normal); Ketones,Urine Negative (Negative); Leukocyte Esterase,Urine Negative (Negative); Nitrite,Urine Negative (Negative); PH,Urine 7.5 pH Units (5.0-8.0); Protein,Urine Negative (Neg-Trace); Specific Gravity,Urine 1.012 (1.010-1.025); Urobilinogen,Urine Normal (Normal)
[2016-12-05] MEDS ORDERED: Piperacillin/Tazobactam 3.375 GM in D5% in Water (Mini-Bag+) 100 ML IVPB ONE (18:19)
[2016-12-05] MEDS ORDERED: Vancomycin 2,000 MG in D5% in Water 500 ML IVPB ONE (19:00)
[2016-12-05] MEDS ORDERED: *HR* HYDROmorphone (PF) 1 MG/ML SYRINGE IVP PRN (20:53)
[2016-12-05] MEDS ORDERED: Naloxone 0.4 MG/ML INJ IVP PRN ×2 (20:53→22:19)
[2016-12-05] MEDS ORDERED: Ondansetron 4 MG/2 ML VIAL IVP PRN (20:53)
--- NOTE | 2016-12-05 20:59 | Internal Med History&Physical ---
<Sukhjinder Bravo - Last Filed: 12/05/16 22:15> Date of Encounter: 12/05/16 Time of Encounter: 20:58 Assessment and Plan (1) Fever Current visit: Yes Status: Acute - Highest recorded fever of 101.9 in ED - Most likely a result of known large B cell lymphoma undergoing chemo at [facility] - WBC wnl, no obvious source of infection - Blood cultures drawn, pending results. - UA and CXR unremarkable. Flu swab pending - Will start on vanc and zosyn and await blood cultures. Monitor for further episodes of fever. Qualifiers: Fever type: due to other condition Qualified Code(s): R50.81 - Fever presenting with conditions classified elsewhere (2) BPH (benign prostatic hyperplasia) Current visit: No Status: Chronic - Continue home meds. Qualifiers: Lower urinary tract symptom presence: symptoms absent Qualified Code(s): N40.0 - Benign prostatic hyperplasia without lower urinary tract symptoms (3) DLBCL (diffuse large B cell lymphoma) Current visit: No Status: Chronic Currently receiving treatment at [facility] - Diagnosed in 2010. Has received autostem cell transplant, radiation, chemo in that time. - Most recent therapy approximately 2 weeks ago, revlimid but stopped due to hypotension and adverse effects. - Continue outpatient treatment, appointment on Wednesday Qualifiers: Lymphoma site: multiple regions Qualified Code(s): C83.38 - Diffuse large B -cell lymphoma, lymph nodes of multiple sites (4) DVT prophylaxis Current visit: No Status: Acute SCDs. Internal Medicine - H&P: HPI Chief complaint: fever Admitted From: Emergency Dept Plans for Post Hospital Care: Home History of present illness: Mr. Velasco is a 66 year old male with a PMhx of large B cell lymphoma diagnosed in 2010, undergoing chemotherapy with revlimid last dose 2 weeks ago presents to ED with fever. He states he has been frequently admitted with these symptoms, most recently in september. He follows with oncologist at [facility]. Symptoms started yesterday with fever of 99 and fatigue/lethargy. He states he wanted to monitor this and when he noticed a higher fever of 101 this AM, he presented to ED. He admits to myalgias, chills, cold sweats during this time. He denies any other symptoms of cough, SOB, DAVIS, nausea, vomiting, diarrhea, rash, recent illness, sick contacts. In the ED, patient had a recorded fever of 101.9. Initially hypotensive which improved with 1L bolus of NS. Blood cultures were drawn and pt was then started on a dose of zosyn. Labs significant for mild anemia. CXR unremarkable. Past Med Surg Social Fam HX - Past Medical History Medical history: cancer, hyperlipidemia, pulmonary embolus, other Psychiatric history: no psych history - Past Surgical History Surgical History: herniorrhaphy, other (left shoulder repair, knee meniscus repair) - Social History Smoking Status: Never smoker Smokeless Tobacco Status: No Alcohol use: none Drug use: unknown - Family History Father Family Member Ethnicity: Non- Living Status: Hx Family Cardiac Disorders: No Hx Family Respiratory Disorders: No Hx Family Cancer: Yes Hx Family GI Disorders: No Hx Family Endocrine Disorder: No Hx Family Neuromuscular Disorders: No Hx Family Neurologic Disorders: No Hx Family HEENT Disorders: No Hx Family Autoimmune Disorders: No Mother Hx Family Cardiac Disorders: Yes (HTN and blood clot) Hx Family Endocrine Disorder: Yes (kidney failure) Internal Medicine - H&P: Meds Acetaminophen [Tylenol] 1,000 mg PO Q6H PRN 09/10/14 [History] Acyclovir [Zovirax] 800 mg PO BID 09/07/16 [History] Calcium Carbonate [Calcium] 500 mg PO BID 09/07/16 [History] Dapsone 100 mg PO DAILY 09/07/16 [History] Docusate [Colace] 100 mg PO QPM 09/07/16 [History] Docusate [Colace] 200 mg PO QAM 09/07/16 [History] Escitalopram [Lexapro] 10 mg PO DAILY 09/07/16 [History] Magnesium Oxide [Mag-Ox] 400 mg PO BID 09/07/16 [History] Multivitamin [Multi-Day Vitamins] 1 each PO DAILY 09/07/16 [History] Omeprazole [PriLOSEC] 40 mg PO DAILY 09/07/16 [History] Oxycodone HCl 15 mg PO Q6H PRN 09/07/16 [History] Prochlorperazine Maleate [Compazine] 10 mg PO Q6H PRN 09/07/16 [History] Ranitidine HCl [Acid Capsule Filler] 150 mg PO DAILY 09/07/16 [History] Rivaroxaban [Xarelto] 20 mg PO DAILY 09/07/16 [History] Tamsulosin [Flomax] 0.4 mg PO Q48H 09/07/16 [History] predniSONE [PredniSONE] 20 mg PO DAILY 09/07/16 [History] Magic Mouthwash [Magic Mouthwash BLM] 10 ml PO QID PRN #240 ml 09/09/16 [Rx] 3 Allergy/AdvReac Type Severity Reaction Status Date / Time levofloxacin [From Levaquin] Allergy Muscle Pain Verified 12/05/16 16:19 sulfamethoxazole Allergy Rash Verified 12/05/16 16:19 [From Bactrim] trimethoprim [From Bactrim] Allergy Rash Verified 12/05/16 16:19 All Systems PM: A 10-system review of systems was performed and is negative for pertinent findings except as documented above in the HPI. - Constitutional Constitutional: chills, excessive sweating, fatigue, fever(s), lethargy - EENT Nose, mouth and throat: no facial pain, no hoarseness, no nasal congestion, no nasal discharge, no post-nasal drip, no sinus pain, no sore throat - Cardiovascular Cardiovascular ROS IM: diaphoresis, no chest pain, no dyspnea, no dyspnea on exertion - Respiratory Respiratory: no cough, no dyspnea, no dyspnea on exertion - Gastrointestinal Gastrointestinal: no abdominal pain, no constipation, no diarrhea, no nausea, no vomiting - Genitourinary Genitourinary ROS male: no dysuria - Musculoskeletal Musculoskeletal ROS IM: myalgias, no numbness, no tingling - Integumentary Integumentary IM: no rash - Neurological Neurological ROS: no headache(s), no numbness, no tremor(s), no weakness - Constitutional Vitals: Temp Pulse Resp BP Pulse Ox 98.3 F 80 17 103/70 93 12/05/16 20:16 12/05/16 20:16 12/05/16 20:16 12/05/16 20:16 12/05/16 20:16 Exam: Gen.: Vitals noted. No acute distress. AAOx3 HEENT: oropharynx clear, Normocephalic, atraumatic, MMM Neck: Supple. No adenopathy. Cardiac: RRR, no murmur, +S1/S2 Pulmonary: CTA bilaterally, no wheezes, rales or rhonchi, equal chest expansion Abdomen: soft, nontender, BS noted, no guarding. Bilateral firm mass in abominal wall. MSK: ROM intact, no joint swelling noted Extremities: no BLE edema, nontender calf, no cyanosis or clubbing Neuro: A&Ox3, moves all extremities, no focal deficits Psych: Appropriate mood and behavior Internal Med - H&P Results - Labs CBC & Chem 7: 12/05/16 16:42 12/05/16 16:42 <Selin Shelton - Last Filed: 12/06/16 00:44> Date of Encounter: 12/06/16 Internal Medicine - H&P: HPI History of present illness: Mr. Velasco is a 66 year old male All Systems PM: A 10-system review of systems was performed and is negative for pertinent findings except as documented above in the HPI. - Constitutional Vitals: Temp Pulse Resp BP Pulse Ox 98.1 F 84 20 96/65 93 12/05/16 22:59 12/05/16 22:59 12/05/16 22:59 12/05/16 22:59 12/05/16 22:59 Internal Med - H&P Results - Labs CBC & Chem 7: 12/05/16 16:42 12/05/16 16:42 - Attending Attestation I saw and examined patient with the resident and agree with History and Plan above.
[2016-12-05] MEDS ORDERED: Vancomycin (wt based) 1,000 MG VIAL IVPB SCH (21:00)
[2016-12-06] MEDS: Piperacillin/Tazobactam 3.375 GM in D5% in Water (Mini-Bag+) 100 ML IVPB SCH ×3 (00:59→18:06)
[2016-12-06 05:33] LABS: Mean Corpuscular Volume 103.7 fL (83.0-100.0)
[2016-12-06 05:35] LABS: Hematocrit 28.1 % (37.5-50.1); Hemoglobin 8.8 g/dL (12.9-16.9); Immature Granulocytes % 2.1 % (0-4); Immature Platelets 2.8 % (1.1-6.1); Lymphocytes # 0.7 K/mcL (0.6-4.6); Lymphocytes % 16.5 %; Mean Corpuscular HGB Conc 31.3 g/dL (31.6-35.5); Mean Corpuscular Hemoglobin 32.5 pg (28.0-33.3); Mean Platelet Volume 9.8 fL (9.4-12.4); Monocytes # 0.5 K/mcL (0.0-1.3); Monocytes % 11.1 %; Platelet Count 109 K/mcL (140-400); Red Blood Count 2.71 M/mcL (4.19-5.50); Red Cell Distribution Width 21.4 % (11.5-14.5); Segmented Neutrophils % 70.3 %
[2016-12-06 05:51] LABS: BUN/Creatinine Ratio 18 (6-26); Blood Urea Nitrogen 16 mg/dL (8-26); Calcium 8.7 mg/dL (8.6-10.8); Carbon Dioxide 26 mEq/L (19-29); Chloride 106 mEq/L (98-109); Glucose 84 mg/dL (70-99); Osmolality,Calculated 290 (280-300); Potassium 4.2 mEq/L (3.5-4.5); Sodium 140 mEq/L (136-145); eGFR For African Americans > 60 (> 60); eGFR For Non-African Americans > 60 (> 60)
[2016-12-06] MEDS: *HR* Rivaroxaban 10 MG TABLET PO SCH (09:36)
[2016-12-06] MEDS: *HR* OxyCODONE Immed Rel 5 MG TABLET PO PRN ×2 (09:39→20:30)
[2016-12-06] MEDS: Vancomycin 1,500 MG in D5% in Water 250 ML IVPB SCH ×2 (09:39→20:32)
[2016-12-06] MEDS: Acetaminophen 325 MG TABLET PO PRN ×2 (11:28→18:06)
[2016-12-06] MEDS: Levofloxacin 750 MG/150 ML 750 MG/150 ML BAG IVPB SCH (13:10)
--- NOTE | 2016-12-06 17:15 | Internal Med Progress Note ---
Date of Encounter: 12/06/16 Time of Encounter: 08:30 - Assessment and plan (1) Pneumonia Current Visit: No Status: Suspected Assessment and plan: Pt with prior hx of pneumonia. Repeat CXR today. Monitor temperature. Continue IV abx for now. Suspect this may be source of fever. Qualifiers: Pneumonia type: due to other aerobic Gram-negative bacteria Laterality: left Lung location: unspecified part of lung Qualified Code(s): J15.6 - Pneumonia due to other Gram-negative bacteria (2) Fever Current Visit: Yes Status: Acute Assessment and plan: Has improved since admission. Feel fever could be infectious versus due to lymphoma. Qualifiers: Fever type: due to other condition Qualified Code(s): R50.81 - Fever presenting with conditions classified elsewhere (3) BPH (benign prostatic hyperplasia) Current Visit: No Status: Chronic Assessment and plan: Chronic issue. Qualifiers: Lower urinary tract symptom presence: symptoms absent Qualified Code(s): N40.0 - Benign prostatic hyperplasia without lower urinary tract symptoms (4) Immunosuppressed due to chemotherapy Current Visit: No Status: Chronic (5) DLBCL (diffuse large B cell lymphoma) Current Visit: No Status: Chronic Assessment and plan: Has appt in [place] Wednesday. Qualifiers: Lymphoma site: multiple regions Qualified Code(s): C83.38 - Diffuse large B -cell lymphoma, lymph nodes of multiple sites - Subjective Interval history: Mr Velasco is currently in observation for acute febrile illness with hx of lymphoma. Mr Velasco is currently doing somewhat better. He has not had further high fevers. No CP or SOB. No cough. Cultures pending at this time. No diarrhea or other symptoms at this time. - Constitutional Vitals: Temp Pulse Resp BP Pulse Ox 98.9 F 96 18 95/65 95 12/06/16 14:54 12/06/16 14:54 12/06/16 14:54 12/06/16 14:54 12/06/16 14:54 General appearance: Present: A&O X 3, pleasant, answers questions appropriately - Head Head exam: Present: normocephalic - Eye Eye exam: Present: conjuntiva pink - ENT ENT exam: Present: mucous membranes moist - Respiratory Respiratory exam: Present: rales. Absent: rhonchi, wheezes Additional comments: Scattered rales bilaterally R greater than L. - Cardiovascular Cardiovascular exam: Present: RRR. Absent: tachycardia - GI/Abdominal GI/Abdominal exam: Present: normal bowel sounds, soft. Absent: tenderness - Extremities Exam Extremities exam: Present: warm. Absent: tenderness - Neurological Exam Neurological exam: Present: alert, oriented X3, no focal deficits - Skin Skin exam: Present: dry, warm. Absent: rash Internal Medicine: Result - Labs CBC & Chem 7: 12/06/16 05:10 12/06/16 05:10 Labs: Short CBC 12/06/16 Range/Units 05:10 WBC 4.2 L (4.3-11.1) K/mcL Hgb 8.8 L D (12.9-16.9) g/dL Hct 28.1 L (37.5-50.1) % Plt Count 109 L (140-400) K/mcL Neutrophils # 3.0 (1.6-8.9) K/mcL BMP 12/06/16 05:10 Sodium 140 Potassium 4.2 Chloride 106 Carbon Dioxide 26 BUN 16 Creatinine 0.87 Glucose 84 Calcium 8.7 - ABG Interpretation ABG results: PT/INR, D-dimer PT 12.2 Seconds (9.4-12.1) H 12/05/16 16:42 - Impressions Impressions Chest X-Ray 12/06/16 09:21 IMPRESSION: Lingular segmental atelectasis versus pneumonia. D/ / Fitz Garcia MD / Fitz Garcia MD Interpreting Provider: Fitz Garcia MD Consult Discharge Plan - Plan Referrals: Pedro Pablo Doyle DO [Primary Care Provider] -
[2016-12-07] MEDS: Piperacillin/Tazobactam 3.375 GM in D5% in Water (Mini-Bag+) 100 ML IVPB SCH ×2 (00:15→10:21)
[2016-12-07] MEDS: *HR* OxyCODONE Immed Rel 5 MG TABLET PO PRN ×2 (03:58→10:20)
[2016-12-07 06:54] LABS: Hematocrit 28.5 % (37.5-50.1); Hemoglobin 9.2 g/dL (12.9-16.9); Immature Platelets 2.4 % (1.1-6.1); Mean Corpuscular HGB Conc 32.3 g/dL (31.6-35.5); Mean Corpuscular Hemoglobin 33.2 pg (28.0-33.3); Mean Corpuscular Volume 102.9 fL (83.0-100.0); Mean Platelet Volume 9.4 fL (9.4-12.4); Red Blood Count 2.77 M/mcL (4.19-5.50)
[2016-12-07 07:10] LABS: BUN/Creatinine Ratio 13 (6-26); Blood Urea Nitrogen 14 mg/dL (8-26); Calcium 8.5 mg/dL (8.6-10.8); Carbon Dioxide 24 mEq/L (19-29); Chloride 106 mEq/L (98-109); Glucose 90 mg/dL (70-99); Magnesium 1.9 mg/dL (1.6-2.6); Osmolality,Calculated 288 (280-300); Sodium 139 mEq/L (136-145); eGFR For African Americans > 60 (> 60); eGFR For Non-African Americans > 60 (> 60)
[2016-12-07] MEDS: Vancomycin 1,500 MG in D5% in Water 250 ML IVPB SCH (07:41)
[2016-12-07] MEDS: *HR* Rivaroxaban 10 MG TABLET PO SCH (08:37)
[2016-12-07] MEDS: Levofloxacin 750 MG/150 ML 750 MG/150 ML BAG IVPB SCH (08:37)
[2016-12-07] MEDS: Acetaminophen 325 MG TABLET PO PRN (08:37)
[2016-12-07 11:59] VITALS: BP 92/66
--- NOTE | 2016-12-07 16:30 | Discharge Summary ---
Date of Encounter: 12/07/16 Time of Encounter: 16:26 - Discharge Diagnosis (1) Pneumonia Priority: Primary Status: Suspected Qualifiers: Pneumonia type: due to other aerobic Gram-negative bacteria Laterality: left Lung location: unspecified part of lung Qualified Code(s): J15.6 - Pneumonia due to other Gram-negative bacteria (2) Fever Priority: Primary Status: Acute Qualifiers: Fever type: due to other condition Qualified Code(s): R50.81 - Fever presenting with conditions classified elsewhere (3) BPH (benign prostatic hyperplasia) Priority: Secondary Status: Chronic Qualifiers: Lower urinary tract symptom presence: symptoms absent Qualified Code(s): N40.0 - Benign prostatic hyperplasia without lower urinary tract symptoms (4) Immunosuppressed due to chemotherapy Priority: Secondary Status: Chronic (5) DLBCL (diffuse large B cell lymphoma) Priority: Secondary Status: Chronic Qualifiers: Lymphoma site: multiple regions Qualified Code(s): C83.38 - Diffuse large B -cell lymphoma, lymph nodes of multiple sites - Discharge Medications Prescriptions: levoFLOXacin [Levaquin] 750 mg PO DAILY #4 tablet Home Medications: Acetaminophen [Tylenol] 1,000 mg PO Q6H PRN 09/10/14 [History] Acyclovir [Zovirax] 800 mg PO BID 09/07/16 [History] Calcium Carbonate [Calcium] 500 mg PO BID 09/07/16 [History] Dapsone 100 mg PO DAILY 09/07/16 [History] Docusate [Colace] 100 mg PO QPM 09/07/16 [History] Docusate [Colace] 200 mg PO QAM 09/07/16 [History] Escitalopram [Lexapro] 10 mg PO DAILY 09/07/16 [History] Magnesium Oxide [Mag-Ox] 400 mg PO BID 09/07/16 [History] Multivitamin [Multi-Day Vitamins] 1 each PO DAILY 09/07/16 [History] Omeprazole [PriLOSEC] 40 mg PO DAILY 09/07/16 [History] Oxycodone HCl 15 mg PO Q6H PRN 09/07/16 [History] Prochlorperazine Maleate [Compazine] 10 mg PO Q6H PRN 09/07/16 [History] Ranitidine HCl [Acid Assistant Real Estate Manager] 150 mg PO BID 09/07/16 [History] Rivaroxaban [Xarelto] 20 mg PO DAILY 09/07/16 [History] Tamsulosin [Flomax] 0.4 mg PO DAILY 09/07/16 [History] Magic Mouthwash [Magic Mouthwash BLM] 10 ml PO QID PRN #240 ml 09/09/16 [Rx] Fluconazole [Diflucan] 200 mg PO BID 12/06/16 [History] levoFLOXacin [Levaquin] 750 mg PO DAILY #4 tablet 12/07/16 [Rx] Allergies/Adverse Reactions: 3 Allergy/AdvReac Type Severity Reaction Status Date / Time sulfamethoxazole Allergy Rash Verified 12/05/16 16:19 [From Bactrim] trimethoprim [From Bactrim] Allergy Rash Verified 12/05/16 16:19 Date of admission: 12/05/16 22:14 Primary care physician: Pedro Pablo Doyle, Discharging clinician: Rafael Clark Anticipated date of discharge: 12/07/16 - Patient Status Disposition: Home, Self-Care Condition: Fair Functional capacity at discharge: independent ambulation Overall status at discharge: patient is progressing back to baseline - Discharge Instructions Instructions: Levofloxacin (By mouth), Fever in Adults (GEN) Follow Up With: Pedro Pablo Doyle DO [Primary Care Provider] - Additional Instructions: Appt with oncologist at [facility] tomorrow at 10AM Follow-up appointments: If there is not an appointment listed below, please call your physician and schedule a follow-up appointment. If you have congestive heart failure and your symptoms return, make an appointment with your physician. Medication List: Carry an up to date list of medications you are taking at all time. We have given you an updated medication list including any new medications that you have been prescribed. Please provide that list to your primary provider Symptoms: If your condition changes or you experience any of the following symptoms, notify your physician immediately: Unusual or worsening pain, fever, persistent nausea and vomiting, bleeding, increase in swelling (especially in your legs), sudden weight gain, extreme dizziness, chest pain, increased drainage or redness from a wound or incision. Go to the emergency department if you experience a problem with breathing. Weights: If you have a history of swelling or shortness of breath, weigh yourself daily and notify your physician if you have a weight gain of two or more pounds in one day or 5 or more pounds in a week. If you experience any of the warning signs for stroke: Sudden numbness or weakness of the face, arm or leg; especially on one side of the body, sudden confusion, trouble speaking or understanding, sudden trouble seeing in one or both eyes, sudden trouble walking, dizziness, loss of balance or coordination, sudden sever headache with no cause; Call 911 or go to the emergency room. Stroke is a medical emergency. Some risk factors for stroke: Age, cigarette smoking, diabetes, excessive alcohol consumption, family history , high blood pressure, overweight, physical inactivity, prior stroke, heart attack, diagnosis of carotid artery stenosis or other artery disease. If you smoke, STOP: Smoking or tobacco use significantly increases your risk of heart and lung disease. Your chance of disease greatly increases if you continue to smoke. For more information, call the [employer] quit line for smoking cessation - QUIT-NOW ( ) - Diet and Activity Activity: increase activity as tolerated Diet: advance to your usual diet Hospital course: Mr. Velasco is a 66 year old male with hx of B cell lymphoma presented to ED with fever. He had no other complaints at that time. He was admitted for further evaluation and treatment. Mr Velasco was admitted to med surg. He was started on IV abx after cultures obtained. Initial CXR was negative but repeat 2 view had questionable lingular infiltrate. He continued to have low grade fevers despite treatment. His blood cx were negative. On 12/07 he felt at baseline. I spoke with his oncologist and at that time we decided to discharge him on PO abx with appt tomorrow. - Time Spent with Patient Total time spent providing and/or coordinating discharge services: 39min - Constitutional Vitals: Temp Pulse Resp BP Pulse Ox 98.6 F 84 16 92/66 91 12/07/16 11:58 12/07/16 11:58 12/07/16 11:58 12/07/16 11:58 12/07/16 11:58 General appearance: Present: A&O X 3, pleasant, answers questions appropriately - Head Head exam: Present: normocephalic - Eye Eye exam: Present: conjuntiva pink - ENT ENT exam: Present: mucous membranes moist - Respiratory Respiratory exam: Present: CTAB. Absent: rhonchi, wheezes - Cardiovascular Cardiovascular exam: Present: RRR. Absent: tachycardia - GI/Abdominal GI/Abdominal exam: Present: soft. Absent: tenderness - Extremities Exam Extremities exam: Present: warm. Absent: tenderness - Neurological Exam Neurological exam: Present: alert, oriented X3
--- NOTE | 2016-12-07 17:05 | Electrocardiograph Report ---
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
[2016-12-07] MEDS ORDERED: Aminoglycoside Consult 1 EACH MC ONE (17:14)
== END 2016-12-07 17:15 | disposition home or self-care (01) | DRG 178 ==
LOC: EMEROO 16:11 → 3BNU 16:11 → SUATTDRO 22:14
PROVIDERS: ADMIT Nurse Practitioner Family; ATTEND Internal Medicine